=== PATIENT | female | born 1970 | race Caucasian/White ===

== ENCOUNTER 2018-10-04 18:28 | Emergency (ER) | payer MEDICAID ==
[~2018-10-04] VITALS: Ht 167.6 cm; Wt 65.0 kg
[2018-10-04 18:35] VITALS: Ht 167.6 cm; Wt 65.0 kg
[2018-10-04 18:59] LABS: BASOPHILS 0.5 % (0-2); EOSINOPHILS 0.6 % (0-7); HEMATOCRIT 41.4 % (36.0-48.0); HEMOGLOBIN 14.6 g/dL (12-16); IMMATURE GRANULOCYTES 0.3 % (0-5); MCH 31.3 pg (26.0-34.0); MCHC 35.3 g/dL (31.0-37.0); MCV 88.7 fL (80.0-100.0); MONOCYTES 8.2 % (2-11); NEUTROPHILS 55.4 % (40-80); PLATELET COUNT 285 10x3/uL (130-400); RBC 4.67 10x6/uL (4.00-5.40); RDW 12.6 % (11.5-14.5); WBC 6.6 10x3/uL (4.8-10.8)
[2018-10-04 19:05] LABS: ALBUMIN 4.2 g/dL (3.4-5.0); ALKALINE PHOSPHATASE 40 U/L (46-116); ALT (SGPT) 12 U/L (10-68); BILIRUBIN - TOTAL 0.42 mg/dL (0.2-1.3); CALC OSMOLALITY 279 mosm/kg (275-300); CALCIUM 9.3 mg/dL (8.5-10.1); CARBON DIOXIDE 29.8 mmol/L (21.0-32.0); CHLORIDE - SERUM 102 mmol/L (98-107); CREATININE - SERUM 0.8 mg/dL (0.6-1.3); GLUCOSE 88 mg/dL (74-106); POTASSIUM - SERUM 3.6 mmol/L (3.5-5.1); SODIUM 140 mmol/L (136-145); UREA NITROGEN 17 mg/dL (7-18); eGFR NON AFRICAN AMERICAN 81 mL/min (90-120)
[2018-10-04 19:16] LABS: CKMB 0.6 U/L (0.0-3.6); CREATINE KINASE 52 UL (21-215); MAGNESIUM - SERUM 2.3 mg/dL (1.8-2.4)
[2018-10-04 19:17] LABS: APTT 41.4 SECONDS (22.8-39.4); INR 0.96 (0.85-1.17); PROTIME 12.3 SECONDS (11.6-15.0)
[2018-10-04 19:22] LABS: TROPONIN-I < 0.017 ng/mL (0.000-0.060)
[2018-10-04] MEDS ORDERED: DOXYCYCLINE HY100 M2 PO (22:13)
[2018-10-04 22:50] VITALS: BP 103/63
== END 2018-10-04 22:51 | disposition home or self-care (01) ==
LOC: D.ER 18:28
PROVIDERS: Family Medicine
DX: R07.9 Chest pain, unspecified (principal); R91.8 Other nonspecific abnormal finding of lung field; J90 Pleural effusion, not elsewhere classified